=== PATIENT | male | born 1935 | race Caucasian/White ===

== ENCOUNTER 2024-12-06 21:00 | Inpatient (IN) ==
[2024-12-06] MEDS: 0.9 % SODIUM CHLORIDE 500 ML IV ONE (21:41)
[2024-12-06] MEDS: ACETAMINOPHEN 1,000 MG/100 ML BAG IV ONE (21:41)
[2024-12-06 21:46] LABS: Basophils # (Auto) 0.01 K/mcL (0.00-0.30); Basophils % (Auto) 0.1 % (0.0-2.0); Eosinophils # (Auto) 0.41 K/mcL (0.00-0.70); Eosinophils % (Auto) 3.8 % (0.0-7.0); Hematocrit 34.0 % (40.1-51.0); Hemoglobin 11.0 g/dL (13.7-17.5); Lymphocytes # (Auto) 0.73 K/mcL (1.50-4.80); Lymphocytes % (Auto) 6.7 % (15.5-49.0); Mean Corpuscular HGB Conc 32.4 g/dL (31.0-36.0); Monocytes # (Auto) 0.97 K/mcL (0.10-0.90); Monocytes % (Auto) 8.9 % (1.0-12.0); Neutrophils % (Auto) 80.3 % (38.0-78.0); Platelet Count 168 K/mcL (140-440); RBC 3.66 M/mcL (4.63-6.08); WBC 10.8 K/mcL (4.5-11.0)
[2024-12-06 22:04] LABS: ALT/SGPT 32 U/L (<40); AST/SGOT 25 U/L (<40); Albumin 3.8 gm/dL (3.2-5.2); Albumin/Globulin Ratio 1.4 (1.0-2.3); Alkaline Phosphatase 70 U/L (39-117); Anion Gap 16.0 (8.0-16.0); Bilirubin,Total 0.6 mg/dL (0.1-1.0); Blood Urea Nitrogen 21 mg/dL (8-23); Calcium 9.2 mg/dL (8.6-10.4); Carbon Dioxide 23 mmol/L (22-30); Chloride 99 mmol/L (96-108); Globulin 2.8 gm/dL (2.2-3.7); Glucose 150 mg/dL (70-105); Potassium 3.0 mmol/L (3.3-5.1); Sodium 138 mmol/L (133-145); Thyroid Stimulating Hormone 1.50 uIU/mL (0.27-5.01)
[2024-12-06 23:28] LABS: Bacteria,Urine 0 /hpf (0); Bilirubin,Urine Negative (Negative); Color,Urine Yellow; Glucose,Urine (UA) Negative (Negative); Ketones,Urine Negative (Negative); Leukocyte Esterase,Urine Moderate /uL (Negative); PH,Urine 5.5 (5.0-9.0); Protein,Urine >=300 mg/dL (Negative); Specific Gravity,Urine 1.025 (1.000-1.035); Urobilinogen,Urine Normal
[2024-12-07] MEDS ORDERED: ONDANSETRON 4 MG/2 ML VIAL IV PRN ×2 (01:45→09:00)
[2024-12-07] MEDS ORDERED: POLYETHYLENE GLYCOL 3350 17 GM PACKET PO PRN (09:00)
[2024-12-07] MEDS ORDERED: POTASSIUM CHLORIDE 40 MEQ in DEXTROSE 5% IN WATER 500 ML IV PRN (09:00)
[2024-12-07] MEDS ORDERED: POTASSIUM CHLORIDE 20 MEQ TABLET PO PRN (09:00)
[2024-12-07] MEDS ORDERED: METOCLOPRAMIDE 10 MG/2 ML VIAL IV PRN (09:00)
[2024-12-07] MEDS ORDERED: ACETAMINOPHEN 325 MG TABLET PO PRN (09:00)
[2024-12-07] MEDS ORDERED: MAGNESIUM SULFATE 2 GM/50 ML BAG IV PRN (09:00)
[2024-12-07] MEDS ORDERED: IPRATROPIUM/ALBUTEROL 3 ML AMPUL.NEB NEB PRN (09:00)
[2024-12-07] MEDS ORDERED: SENNOSIDES 1 TABLET PO PRN (09:00)
[2024-12-07] MEDS: DOCUSATE SODIUM 100 MG CAPSULE PO SCH (09:29)
[2024-12-07] MEDS: POTASSIUM CHLORIDE 20 MEQ TABLET PO SCH (09:30)
[2024-12-07] MEDS: cefTRIAXone 1 GM VIAL IV SCH (09:31)
[2024-12-07] MEDS: LEVOTHYROXINE 50 MCG TABLET PO SCH (09:31)
[2024-12-07] MEDS: APIXABAN 5 MG TABLET PO SCH (09:31)
[2024-12-07] MEDS: 0.9 % SODIUM CHLORIDE 1,000 ML IV ONE (09:35)
[2024-12-07] MEDS: AZITHROMYCIN 500 MG in DEXTROSE 5% IN WATER 250 ML IV SCH (09:58)
[2024-12-07] MEDS ORDERED: METOPROLOL TARTRATE 5 MG/5 ML VIAL IV PRN (10:51)
[2024-12-07] MEDS: 0.9 % SODIUM CHLORIDE 10 ML SYRINGE IV SCH (14:11)
[2024-12-08 06:47] LABS: ALT/SGPT 32 U/L (<40); AST/SGOT 24 U/L (<40); Albumin 3.4 gm/dL (3.2-5.2); Albumin/Globulin Ratio 1.4 (1.0-2.3); Alkaline Phosphatase 59 U/L (39-117); Anion Gap 9.0 (8.0-16.0); Bilirubin,Direct < 0.2 mg/dL (0-0.3); Bilirubin,Total 0.3 mg/dL (0.1-1.0); Blood Urea Nitrogen 22 mg/dL (8-23); Calcium 8.9 mg/dL (8.6-10.4); Carbon Dioxide 25 mmol/L (22-30); Chloride 105 mmol/L (96-108); Globulin 2.4 gm/dL (2.2-3.7); Glucose 119 mg/dL (70-105); Phosphorous 2.3 mg/dL (2.5-4.5); Potassium 3.4 mmol/L (3.3-5.1); Sodium 139 mmol/L (133-145); Triglycerides 126 mg/dL (<150); Uric Acid 6.1 mg/dL (2.5-8.0)
[2024-12-08 07:15] LABS: Basophils # (Auto) 0.01 K/mcL (0.00-0.30); Basophils % (Auto) 0.2 % (0.0-2.0); Eosinophils # (Auto) 0.50 K/mcL (0.00-0.70); Eosinophils % (Auto) 8.3 % (0.0-7.0); Hematocrit 30.4 % (40.1-51.0); Hemoglobin 10.1 g/dL (13.7-17.5); Lymphocytes # (Auto) 0.96 K/mcL (1.50-4.80); Lymphocytes % (Auto) 15.9 % (15.5-49.0); Mean Corpuscular HGB Conc 33.2 g/dL (31.0-36.0); Monocytes # (Auto) 1.12 K/mcL (0.10-0.90); Monocytes % (Auto) 18.5 % (1.0-12.0); Neutrophils % (Auto) 56.9 % (38.0-78.0); Platelet Count 145 K/mcL (140-440); RBC 3.32 M/mcL (4.63-6.08); WBC 6.1 K/mcL (4.5-11.0)
[2024-12-08] MEDS: AZITHROMYCIN 250 MG TABLET PO SCH (08:22)
[2024-12-08] MEDS: LOSARTAN 50 MG TABLET PO SCH (08:22)
[2024-12-08] MEDS: POTASSIUM CHLORIDE 20 MEQ TABLET PO PRN (08:22)
[2024-12-09] MEDS: MEROPENEM 1 GM in 0.9 % SODIUM CHLORIDE 50 ML IV SCH (08:33)
[2024-12-09 11:08] VITALS: TEMP 98.2; O2SAT 99
[2024-12-09] MEDS: ERTAPENEM 1 GM in 0.9 % SODIUM CHLORIDE 50 ML IV SCH (13:26)
== END 2024-12-09 15:15 | disposition home or self-care (01) | DRG 690 ==
LOC: MEDSUR 21:00 → ED 21:00 → OBSVTOIN 12-07 01:57 → MEDSUR 12-07 02:12
PROVIDERS: ADMIT Internal Medicine; ATTEND Internal Medicine